=== PATIENT | male | born 1940 | race Caucasian/White ===

== ENCOUNTER → 2017-01-30 | Day surgery (SDC) | payer OTHER, BC ==
[2017-01-30] VITALS (14 sets, daily range): BP systolic 126–153; BP diastolic 72–90; PULSE 56–63; TEMP 36.5–37; O2SAT 91–99; Ht 172.7 cm; Wt 66.0 kg
[~2017-01-30] VITALS: Ht 172.7 cm; Wt 66.0 kg
[~2017-01-30] MED LIST: AMOX500T PO; CARB50TA3 PO; CHOL1000 PO; CLOP1TAB15 PO; FAMO20TA11 PO; FENTANYL CITRATE 100 MCG 2 ML CARP IV ONE; FENTANYL CITRATE INJ 50 MCG/1 ML 2 ML VIAL IV ONE; FLUO20CA35 PO; LORA-741 PO; MIDAZOLAM HCL 1 MG/ML 2ML VIAL IV ONE; MIDAZOLAM HCL 5 MG/ML 1 ML VIAL IV ONE; NURSING VERBAL MED ORDER ONE; TEMA15CA4 PO; THIA100T11 PO; [UNRECOGNIZED DRUG - OTHER] TD
--- NOTE | 2017-01-30 09:41 | History and Physical ---
History & Physical Date Jan 30, 2017. Chief Complaint Hemoptysis History of Present Illness The patient is a 76 year old male with complaints of Past Medical/Surgical History 76-year-old male presents the office new patient evaluation for abnormal CT scan and history of hemoptysis. Prior records reviewed. PMHx includes: History of Parkinson's dx 9 years ago, h/o admission- [facility], glomerulonephritis, rheumatoid arthritis formally on chronic prednisone, history pulmonary nodule, history of CVA on Plavix, and? h/o COPD. Patient reports he was diagnosed with a pulmonary nodule approximately 20-25 years ago with doctors local. He states that he was followed with serial CT scans. Additionally he underwent what sounds like a a transthoracic biopsy and told that the nodule was not malignant. He does recall PET/CT It is unclear exactly which nodule was biopsied and we do not have these records help however the will be requested. 09/15- patient was admitted in [facility] with sepsis and left lower lobe infiltrate. ABGs: 7.4 02/18/1962. He was treated with ceftriaxone underwent speech evaluation for which she was prescribed a mechanical diet and aspiration precautions. He states he has been adherent to these recommendations. Patient reported since his admission he felt generally improved but continued to cough with sputum productive of reddish/brown mucus. 01/14/2017 patient developed episodes of hemoptysis notable for expectoration of 1-2 tsp of bright red blood. The CT of the chest completed 01/14/2017 described spiculated density with calcification, calcified mediastinal hilar lymph nodes, 2 cm smooth rounded left upper lobe pulmonary nodule (similar CT 2011), and bilobed lateral interstitial PACs was significant at the left lung base. He was evaluated by his primary care physician and bronchoscopy was recommended at that time. Since this evaluation he continues report episodes of hemoptysis consisting of bright red blood filling 6 to 7 paper towels. He states that he may expectorant blood clots as well. He reports mild increase in shortness of breath without any associated wheeze, fevers, or chills. Patient reports former tobacco use smoking approximately 2 packs per week from his teenage years. He quit in 1983. He worked formally [employer] for 12 years and then for 18 years in an [employer]. Where reports significant exposure to asbestos. He denies any prior service in the . He is a lifelong [place] resident. He looks his in their home in [facility]. Heat: forced air. They do not have any pets. Denies any mold or mildew in the home. He denies recent travel or daily alcohol use. He denies any family history of lung disease or lung cancer. He does report personal history pericarditis. Of note, he does have history of reaction/hives to contrast dye. CT 01/14/2017 (images and report reviewed): This describes a spiculated density with calcifications in the left upper lobe as well as dyspnea with 2 cm rounded nodules along the fissure of the left upper lobe. These do appear similar per report to the chest CT from 2011 however do not have this available for comparison. As above there are significant interstitial changes affecting the left lung base CT 01/03/2012 - report: Extensive emphysematous changes in bilateral lung clark with masslike area her on the 2nd and 3rd order bronchi on the right. This extends down to the right middle lobe. In the lingula, there is a 2 x 2 x 1.9 cm nodule previously measuring 1.7 x 1.9 x 2 cm. There is a small calcified nodule in the left upper lobe similarly compared to CT from 05/2011 Additional History Hepatic Disease: No Endocrine Disorder: No Kidney Disease: No Hypertension: No Heart Disease: No Bleeding Tendencies: Yes (xeralto from CVA) Infectious Diseases: No Allergies Coded Allergies: Iodinated Diagnostic Agents (Verified Allergy, Unknown, hives, 01/30/17) Home Medications Scheduled Amoxicillin & Pot Clavulanate (Augmentin 500MG), Unknown Dose PO BID Carbidopa/Levodopa (Sinemet Cr 50MG/200MG), 1 TAB PO 5XD Cholecalciferol (Vitamin D3), 1 TAB PO QPM Clopidogrel (Plavix), 75 MG PO QAM Famotidine (Pepcid), 20 MG PO QAM Fluoxetine (Prozac), 20 MG PO QAM Lorazepam (Ativan), 0.5 MG PO TID Temazepam (Restoril), 15 MG PO HS Thiamine Hcl (Vitamin B-1), 1,000 MG PO QAM [neutro patch], TD HS Physical Examination Skin: warm/dry, no rash Eyes: normal inspection, EOMI, sclerae normal ENT: normal ENT inspection, pharynx normal Head: normocephalic, atraumatic Neck: supple, no adenopathy, trachea midline Respiratory/Chest: + pertinent finding (Crackles left base) Cardiovascular: regular rate, rhythm, no edema, no murmur Abdomen / GI: normal bowel sounds, non tender Back: normal inspection Extremities: normal inspection, normal range of motion Neurologic/Psych: no motor/sensory deficits, alert, normal reflexes, oriented x 3 Diagnosis Hemoptysis ASA Classification: ASA Class III Plan of Treatment Bronchoscopy for Evaluation of hemoptysis
--- NOTE | 2017-01-30 09:55 | History & Physical Bridge Note ---
H&P Re-Evaluation Bridge Note: I have examined the patient, reviewed the History & Physical and in the interval since the performance of the History & Physical I have noted the following changes of clinical significance: No changes noted
--- NOTE | 2017-01-30 09:58 | Procedure Note ---
Pre-Mod Sedation Assessment General Date of Moderate Sedation: Jan 30, 2017. Vital Signs: Vital Signs Past 12 Hours Date Time Temp Pulse Resp B/P (MAP) Pulse Ox O2 Delivery O2 Flow Rate FiO2 01/30/17 08:45 36.5 60 20 147/82 (103) 91 Room Air Review Cardiovascular: regular rate, rhythm, no edema, no gallop, no JVD, no murmur Abdomen: normal bowel sounds, non tender, soft, no organomegaly Lungs: chest non-tender, lungs clear, normal breath sounds, no respiratory distress Airway Class: III Pre-Sedation Airway Assessment Oral Cavity: Dentures, WNL Able to Visualize Vocal Cords: Yes Short Thick Neck: No Hx of Sleep Apnea: No Smoking Status: Former Smoker Mallampati Classification: Class III ASA Classification: Class IV Procedure Planning Contraindications-for Mod Sed: None Yes Notes The planned sedation has been discussed with the patient and consent obtained. I have identified the patient, determined the appropriateness of sedation and have assessed the patient immediately prior to the procedure. All medicine(s) and interventions are by my order.
[2017-01-30 10:14] LABS: PARTIAL THROMBOPLASTIN RATIO 1.1; PROTHROMBIN TIME (PATIENT) 11.1 SECONDS (9.0-12.0)
--- NOTE | 2017-01-30 11:13 | Bronchoscopy Procedure Note ---
Bronchoscopy Procedure Note Procedure: Bronchoscopy, conscious sedation, bronchial lavage Consent: Obtained through the patient placed into the chart Pre-procedural diagnosis: Hemoptysis Post-procedural diagnosis: Hemoptysis Start time: 1016 End time: 1032 Total time: 16 minutes Analgesia: 2% liquid lidocaine: Via nebulizer 4% gel lidocaine: Via right naris 2% liquid lidocaine: Via bronchoscopy Sedation: Versed IV: 2 mg Fentanyl IV: 50 g Procedure: The Olympus video bronchoscope was used for this procedure and passed down through initially through the oropharynx and then right naris then retroflexed off the uvula Oropharynx/posterior oropharynx/posterior naris: Anatomically within normal limits no signs of bleeding Right naris/posterior naris/posterior oropharynx: Anatomically within normal limits Glottis: Anatomically within normal limits Vocal cords: Proper abduction and abduction, anatomically within normal limits Subglottis/trachea/Malu: Anatomically within normal limits Right bronchial tree: Right mainstem bronchus: Anatomically within normal limits Right upper lobe: LB1/posterior subsegment right upper lobe with notable bronchial ring destruction and mild erythema Bronchus intermedius: Anatomically within normal limits Right middle lobe: Anatomically within normal limits Right lower lobe: Anatomically within normal limits Findings: LB1/posterior subsegment bronchial ring destruction Left bronchial tree: Left mainstem bronchus: Anatomically within normal limits, large mucus plug with bloody streaks Left upper lobe: Anatomically within normal limits Lingula: Anatomically within normal limits Left lower lobe: Anatomically within normal limits Findings: No significant findings noted Bronchial alveolar lavage: Right upper lobe posterior subsegment EBL: None Complications: None Follow-up: In the [facility]
--- NOTE | 2017-01-30 11:16 | Discharge Instructions ---
Discharge Instructions Date of Service Jan 30, 2017. Admission Reason for Admission: Hemoptysis, Copd, Sob Discharge Discharge Diagnosis / Problem: Hemoptysis with right upper lobe bronchial ring destruction Discharge Goals Goal(s): Diagnostic testing Activity Recommendations Activity Limitations: resume your previous activity . Instructions / Follow-Up Instructions / Follow-Up Follow-up in the [facility]. I would also like to see this patient's previous bronchoscopy report and CTs of the thorax. As well the patient's daughters are asked to come to the clinic visit. Current Hospital Diet Patient's current hospital diet: Discharge Diet Recommended Diet: Regular Diet Procedures Procedures Performed: Bronchoscopy, bronchial lavage of the right upper lobe, conscious sedation Pending Studies Studies pending at discharge: no Medical Emergencies . Who to Call and When: Medical Emergencies: If at any time you feel your situation is an emergency, please call 911 immediately. . Non-Emergent Contact Non-Emergency issues call your: [employer] . . "Provider Documentation" section prepared by Khoa Encinas. . VTE Core Measure Inpt VTE Proph given/why not?: Other Anticoagulation (Resume Plavix)
== END | disposition home or self-care (01) ==
LOC: C.ACU 08:05
PROVIDERS: ATTEND Internal Medicine Critical Care Medicine
DX: R04.2 Hemoptysis (principal); M06.9 Rheumatoid arthritis, unspecified; J44.9 Chronic obstructive pulmonary disease, unspecified; Z79.02 Long term (current) use of antithrombotics/antiplatelets; Z87.891 Personal history of nicotine dependence; Z86.73 Personal history of transient ischemic attack (TIA), and cerebral infarction without residual deficits; Z79.899 Other long term (current) drug therapy